=== PATIENT | male | born 1960 | race Caucasian/White ===

== ENCOUNTER → 2020-12-17 | Outpatient (CLI) | payer MEDICARE ==
--- NOTE | 2020-12-17 13:36 | RAD ---
XR ABDOMEN 1V History: Reason: abd pain / Spl. Instructions: / History: Technique: Supine views of the abdomen. Comparison: None. Findings: Punctate calculus projecting of the right renal fossa. Phlebolith projecting over the right pelvis. M ild small bowel gas. Air and stool throughout the colon. Moderate colonic stool burden. Imaged lung b ases are unremarkable. Impression: 1. Nonobstructed bowel gas pattern. 2. Right nephrolithiasis. Electronically signed by: Javy Khan DO (12/17/2020 1:33 PM) [id number]
== END ==
LOC: RAD 12:49
PROVIDERS: ATTEND Nurse Practitioner Family
DX: N20.0 Calculus of kidney (principal); I87.8 Other specified disorders of veins; R10.84 Generalized abdominal pain
CPT/HCPCS: 74018